=== PATIENT | female | born 1940 | race Caucasian/White ===

== ENCOUNTER → 2023-12-23 07:22 | Outpatient (REF) | payer MEDICARE, OTHER, SELFPAY | LOC: HWRAD 07:22 | PROVIDERS: ATTENDING PHYSICIAN Physician Assistant; FAMILY PHYSICIAN Internal Medicine Geriatric Medicine | DX: M81.0 Age-related osteoporosis without current pathological fracture (principal); S42.201A Unspecified fracture of upper end of right humerus, initial encounter for closed fracture | CPT/HCPCS: 77080 ==